=== PATIENT | male | born 1990 | race Caucasian/White ===

== ENCOUNTER 2023-01-14 09:57 | Emergency (ER) | payer SELFPAY ==
[2023-01-14 10:19] VITALS: BP 156/101; PULSE 86; RESP 18; TEMP 36.7; O2SAT 96
--- NOTE | 2023-01-14 10:30 | DI.US_ITS ---
Exam(s) US LOWER EXTREMITY VENOUS LT EXAM: US LOWER EXTREMITY VENOUS LT CLINICAL HISTORY: leg swelling. TECHNIQUE: Lower extremity venous ultrasound performed using grayscale, color-flow, and spectral Do ppler analysis. COMPARISON: No exams were available for comparison FINDINGS: The common femoral, femoral and popliteal veins demonstrate normal compressibility, augmentation, and color Doppler.Calf veins are not well seen due to patient body habitus.. No saphenous vein thrombos is or other superficial venous thrombosis is seen. No hematoma or Maynard's cyst is seen. There are r eactive groin lymph nodes. Soft tissue edema noted in calf region. IMPRESSION: Calf edema. No evidence of DVT. DATA REPOSITORY:
--- NOTE | 2023-01-14 10:37 | ED.GENADUL_ITS ---
Discharge Plan Disposition Patient Disposition: Home Discharge Details Clinical Impression: Cellulitis Primary Care Provider: None,None ED Provider: Angel Pitt Home Meds and New Rx's Prescriptions: New cephalexin 500 mg tablet 500 mg PO QID 6 Days Qty: 24 0RF Discharge Instructions Instructions: Cellulitis (ED) Additional Instructions: You may continue to take [id number] medications as needed for pain or discomfort. Please keep extremity elevated as this will help with swelling. Take antibiotics as prescribed and for full course of treatment. If you develop any new or significant worsening of symptoms please return to the emergency department for reassessment or follow-up with your primary care provider if not improving. Stand Alone Forms: Work Release Referrals: Primary Care Provider [Outside] - 5 days (If not improving) Discharge Data Discharge Date/Time-TO BE ENTERED AT DEPARTURE: 01/14/23 11:43 Medical Decision Making Patient presenting to the emergency department for chief complaint of left leg pain and discomfort. Patient states couple days ago he started feeling ill and did not know the cause. Since then he has noted significant increase in pain and discomfort of his left lower leg, malaise, and subjective fever and chills that have resolved on their own. He does state mild headache as well. Physical exam shows significant left lower leg erythema and edema that is greater than the right. Patient does have significant obesity with suspicion of some lower extremity lymphedema versus chronic swelling versus adipose tissue. Patient does have some tenderness to palpation of the calf and lateral leg. Given that we will have patient receive ultrasound imaging to rule out DVT otherwise symptoms are highly suspicious for cellulitis. Pending DVT results that are more rule out I will give patient Keflex given patient's report of childhood penicillin allergies but no other reaction since. Ultrasound imaging shows no DVT. Will discharge patient on Keflex given no reaction noted in the emergency department. After discussion of diagnosis and plan of care patient has no further needs, questions, or concerns and states clear understanding to return to the emergency department for any worsening symptoms. This documentation was generated using [employer] dictation system, please disregard any oddities of phrase or misspellings. Imaging Data Radiologic Study: Imaging: Ultrasound Radiologist's impression: Exam(s) US LOWER EXTREMITY VENOUS LT EXAM: US LOWER EXTREMITY VENOUS LT CLINICAL HISTORY: leg swelling. TECHNIQUE: Lower extremity venous ultrasound performed using grayscale, color- flow, and spectral Doppler analysis. COMPARISON: No exams were available for comparison FINDINGS: The common femoral, femoral and popliteal veins demonstrate normal compressibility, augmentation, and color Doppler.Calf veins are not well seen due to patient body habitus.. No saphenous vein thrombosis or other superficial venous thrombosis is seen. No hematoma or Maynard's cyst is seen. There are reactive groin lymph nodes. Soft tissue edema noted in calf region. IMPRESSION: Calf edema. No evidence of DVT HPI General Mode of arrival: ambulatory . Date/Time Provider Initiated Documentation: 01/14/23 09:59 . Limitations to Documentation: no limitations . Information obtained by: patient and RN notes reviewed . History of Present Illness 32 year old M presents to the emergency department with the chief complaint of Left leg swelling pain and discomfort, described as moderate, with intensity rated at 5. Quality is described as aching, and is localized to the left and lower extremity. Patient started experiencing this day(s) (3) and it has been constant. No relieving factors improve symptom(s), No exacerbating factors reported . Patient did receive the following treatments prior to arrival, none Related Data Home Medications Medication Instructions Recorded Confirmed cephalexin 500 mg tablet 500 mg PO QID 6 days #24 tabs 01/14/23 Previous Rx's Medication Instructions Recorded cephalexin 500 mg tablet 500 mg PO QID 6 days #24 tabs 01/14/23 General Stated Complaint: Cellulitis RAFIQ: 3 Review of Systems Constitutional Constitutional: Reports chills, Reports fever(s), Reports headache(s) and Reports malaise ENT Ears, Nose, Mouth, and Throat: Reports headache(s) Cardiovascular Cardiovascular: Denies chest pain and Denies dyspnea Respiratory Respiratory: Denies cough and Denies dyspnea Musculoskeletal Musculoskeletal: Reports as per HPI and Reports joint swelling Integumentary/Breasts Skin/Breast: Reports erythema, Denies rash, Reports skin pain and Reports skin swelling Neurologic Neurologic: Reports headache(s) PFSH All Active Problems (Updated 01/14/23 @ 11:33 by Angel Pitt NP) Cellulitis (Acute) Social History Smoking/Tobacco Use Status: Current every day Tobacco Type: cigarettes Years smoked: 3 Smoking risk assessment performed?: Yes Alcohol Intake: current Alcohol Intake frequency: a few times a week Alcohol type: beer and hard liquor Drug use: Rarely Substance use type: marijuana Details: About 10 beers a couple times a week Do you feel safe at home: Yes Do you feel safe in your relationship?: Yes Exam Const General: cooperative, no acute distress and not ill appearing Orientation: alert, awake and oriented x3 Resp Effort & Inspection: normal respiratory effort, able to speak in complete sentences and no respiratory distress Cardio Rate: regular rate Rhythm: regular rhythm Neuro General: patient alert, patient awake, patient oriented x3, moves all extremities and no focal motor deficits Sensory Exam: no sensory deficits noted Extrem General: normal exam except as noted and edema Laterality: bilateral (Left greater than right) Right lower extremity: edema Details: non-pitting and 1+ Left lower extremity: lower leg Details: erythema Location: of the mid lower leg Location: anterolaterally and of the distal lower leg Location: anterolaterally, tenderness Location: of the midshaft fibula and non-pitting edema Details: 3+; no abrasions, no lacerations and no deformity Course Vital Signs Vital signs: Vital Signs Temperature 36.7 C 01/14/23 10:19 Pulse 86 01/14/23 10:19 Respiratory Rate 18 01/14/23 10:19 Blood Pressure 156/101 H 01/14/23 10:19 Pulse Oximetry 96 01/14/23 10:19 Temperature 36.7 C 01/14/23 10:19 Temperature Source Oral 01/14/23 10:19 Pulse 86 01/14/23 10:19 Respiratory Rate 18 01/14/23 10:19 Blood Pressure 156/101 H 01/14/23 10:19 Blood Pressure Position Sitting 01/14/23 10:19 Pulse Oximetry 96 01/14/23 10:19 Oxygen Delivery Method Room Air 01/14/23 10:19 Oxygen Flow Rate 0 01/14/23 10:19 Pain Level 2 01/14/23 10:19 Comment took either ibuprofen or tylenol yesterday with some relief 01/14/23 10:19
[2023-01-14] MEDS: Cephalexin 500 MG CAP PO (10:45)
[2023-01-14 11:41] VITALS: BP 152/98; PULSE 90; RESP 18; O2SAT 93
== END 2023-01-14 11:43 | disposition home or self-care (01) ==
PROVIDERS: Emergency Provider Nurse Practitioner Family
DX: L03.116 Cellulitis of left lower limb (principal)
CPT/HCPCS: 99283; 93971; 99284

== ENCOUNTER 2023-05-17 09:01 | Emergency (ER) | payer SELFPAY ==
[2023-05-17 09:06] VITALS: BP 166/103; PULSE 93; RESP 22; TEMP 36.2; O2SAT 93
--- NOTE | 2023-05-17 09:12 | ED.GENADUL_ITS ---
Discharge Plan Disposition Patient Disposition: Home Condition: Good Discharge Details Clinical Impression: Fever ED Provider: Arin Holland Discharge Instructions Instructions: Fever in Adults (ED) Additional Instructions: As we discussed, your imaging and labs are reassuring here today. The pain that you had in the leg as well as the redness may have been some cellulitis but this does seem to be improving. Please continue to encourage hydration. May use Tylenol and ibuprofen as needed for discomfort. As we discussed, we will do a watch and wait approach in regards to the antibiotics, please begin if the cellulitis begins to reappear. Please go from here to community connections to establish health insurance. Please follow-up with primary care in 2 weeks for reevaluation. If you develop recurrent fever, shortness of breath, pain in your calf, shortness of breath, chest pain or other new/worsening symptom please seek care urgently once again. Discharge Data Discharge Date/Time-TO BE ENTERED AT DEPARTURE: 05/17/23 10:59 Medical Decision Making Patient is a pleasant 32-year-old male with no known past medical history presenting today with chief complaint of left leg pain and fever. Patient was here in December of this year with similar symptoms and having a cellulitis. He reports that he began having fever and right shoulder pain 3 days ago. Has had a diminished appetite. Has also been endorsing some right upper quadrant pain. Right upper quadrant and right shoulder pain are worse at night. He attributes this to malposition when sleeping. No previous abdominal surgeries. Patient does have elevated BMI of 54. He is an active smoker, states that he smokes between 1 and 2 packs/week. He states that his leg was bothering him yesterday but is not bothering him as much today. Patient does not have routine primary care. He does have familial history of heart disease as well as diabetes. On exam, patient appears nontoxic he does appear obese and that he could have chronic comorbidities. He is hypertensive with blood pressure 166/103. He was hypertensive similar to same in December. He also has a acanthosis nigrans. His lungs are clear, normal cardiac exam. He does have some right upper quadrant tenderness with questionable Reardon's. For the patient did have pain with inspiration he felt like it was more soft tissue discomfort rather than deep pain. He has bilateral lower extremity swelling which appears to be more associated with his abdomen habitus rather than any pitting edema. I do not appreciate any new cellulitis and he is not tender at this time. No calf pain or palpable cord to suggest DVT. Main concern the patient's obesity and smoking as well as possible underlying comorbidities such as hypertension possible diabetes, that he is at high risk for ACS. His RUQ pain has me concerned for possible gallbladder disorder, will obtain US. Have asked care management to see patient, trying to help him establish PCP and health insurance. Labs reviewed, glucose is slightly elevated but otherwise no acute abnormality, no leukocytosis. LIVER: Liver appears slightly prominent in size.? No focal hepatic lesions.? No obvious steatosis. GALLBLADDER/BILIARY: There are no gallstones. No gallbladder wall edema nor pericholecystic fluid The common hepatic duct isnot dilated, measuring 3-4mm at the level of ace hepatis. PANCREAS: There is no evidence of pancreatic mass nor dilatation of the pancreatic duct. RIGHT KIDNEY:No evidence of solid mass, calculus, nor hydronephrosis. No cortical cysts evident. IMPRESSION: 1.? No evidence of cholelithiasis nor dilatation of the biliary tree.? 2.? Mild hepatomegaly.? No obvious steatosis.? No focal hepatic lesions identified. 3.? No other right upper quadrant ultrasound findings and there is no ascites evident Discussed with patient. I do not see evidence of acute cellulitis or other acute bacterial infection. Advised likely viral illness. Encouraged hydration, supportive care. We discussed strict return precautions. He has resources for health insurance, I have also asked our care management team to assist with PCP. Return precautions we discssed. All of their questions and concerns were addressed, they are in agreement with this plan. [facility] General Date/Time Provider Initiated Documentation: 05/17/23 09:03 . Limitations to Documentation: no limitations . Information obtained by: patient, RN notes reviewed and old records reviewed . History of Present Illness 32 year old M presents to the emergency department with the chief complaint of fever, abdominal pain, improving LLE erythemaa, described as mild and similar to prior episodes, Quality is described as aching, and is localized to the abdomen, left and lower extremity. Patient reports no radiation. Patient started experiencing this day(s) and it has been now resolved (no pain currently, erythema in LLE has improved). No relieving factors improve symptom(s), No exacerbating factors reported . Patient notes fever/chills, loss of appetite, malaise and rash (erythema that improved); denies chest pain, cough, diaphoresis, headaches, nausea/vomiting and shortness of breath. Patient did receive the following treatments prior to arrival, none Related Data Allergies Allergy/AdvReac Type Severity Reaction Status Date / Time Penicillins AdvReac Unknown Other (See Unverified 05/17/23 10:35 Comment) General Stated Complaint: Cellulitis RAFIQ: 3 Review of Systems Constitutional Constitutional: Reports as per HPI, Denies chills and Denies headache(s) ENT Ears, Nose, Mouth, and Throat: Denies headache(s) Cardiovascular Cardiovascular: Reports as per HPI, Denies chest pain and Denies dyspnea Respiratory Respiratory: Reports as per HPI, Denies cough and Denies dyspnea Gastrointestinal Gastrointestinal: Reports as per HPI Genitourinary Genitourinary: Denies system reviewed and no additional complaints, except as documented (patient denies any change in urinary habits) Musculoskeletal Musculoskeletal: Reports as per HPI and Denies back pain Integumentary/Breasts Skin/Breast: Reports as per HPI Neurologic Neurologic: Reports as per HPI and Denies headache(s) PFSH All Active Problems (Updated 05/17/23 @ 10:50 by HELEN Tom) Fever (Acute) Social History Smoking/Tobacco Use Status: Current every day Tobacco Type: cigarettes Years smoked: 3 Smoking risk assessment performed?: Yes Alcohol Intake: current Alcohol Intake frequency: a few times a week Alcohol type: beer and hard liquor Drug use: Rarely Substance use type: marijuana Details: About 10 beers a couple times a week Housing: house Do you feel safe at home: Yes Do you feel safe in your relationship?: Yes Exam Const General: cooperative, healthy appearing, comfortable, no acute distress and well developed Nutritional Appearance: well nourished and obese Orientation: alert and awake HENMT Head: normal to inspection Mouth: moist mucous membranes Neck Neck: other (acanthosis nigricans) Resp Effort & Inspection: normal respiratory effort, able to speak in complete sentences and no respiratory distress Auscultation: clear to auscultation bilaterally, no rales, no rhonchi and no wheezes Cardio Rate: regular rate Rhythm: regular rhythm Heart Sounds: S1 normal and S2 normal GI Inspection: normal to inspection and obesity Palpation: soft, no hepatosplenomegaly (limited secondary to body habitus), not rigid and tender in the RUQ; not at McBurney's point, Reardon's sign negative (had some discomfort but no real guarding with inspiration) and with no rebound tenderness Percussion: normal to percussion Auscultation: normal bowel sounds Back/Spine/Pelvis Back: no CVA tenderness Skin General skin exam: no rashes or lesions noted (acanthosis nigricans) Trauma: no lacerations or abrasions Neuro General: patient alert and patient awake Cognition: normal cognition Speech: speech normal Gait: normal gait Extrem General: no calf tenderness, normal gait and edema Laterality: bilateral (nonpitting swelling, no tenderness, no erythema at this time) Psych Appearance: grossly normal and well kempt Mental Status: mental status grossly normal Speech and Movement: speech and movement normal Course Vital Signs Vital signs: Vital Signs Temperature 36.2 C L 05/17/23 09:06 Pulse 93 H 05/17/23 09:06 Respiratory Rate 22 05/17/23 09:06 Blood Pressure 166/103 H 05/17/23 09:06 Pulse Oximetry 93 05/17/23 09:06 Temperature 36.2 C L 05/17/23 09:06 Temperature Source Temporal Artery Scan 05/17/23 09:06 Pulse 93 H 05/17/23 09:06 Respiratory Rate 22 05/17/23 09:06 Blood Pressure 166/103 H 05/17/23 09:06 Blood Pressure Position Sitting 05/17/23 09:06 Pulse Oximetry 93 05/17/23 09:06 Oxygen Delivery Method Room Air 05/17/23 09:06 Oxygen Flow Rate 0 05/17/23 09:06
--- NOTE | 2023-05-17 09:15 | RT.EKG_ITS ---
APPROVED REPORT Exam: Resting ECG Reason for Exam: right shoulder pain Patient Location: E HR:92 bpm ECG Measurements Heart Rate 92 AXIS MN 170 P 55 QRSd 109 QRS 53 QT 362 T 32 QTc 447 Conclusion Sinus rhythm...normal P axis, V-rate 60- 99
--- NOTE | 2023-05-17 09:15 | DI.US_ITS ---
Exam(s) US ABDOMEN LIMITED EXAM: US ABDOMEN LIMITED CLINICAL HISTORY: gallbladder, RUQ pain with radiation to R shoulder TECHNIQUE: Ultrasound abdomen performed using standard protocol. COMPARISON: None FINDINGS: There is no ascites evident. LIVER: Liver appears slightly prominent in size. No focal hepatic lesions. No obvious steatosis. GALLBLADDER/BILIARY: There are no gallstones. No gallbladder wall edema nor pericholecystic fluid. The common hepatic duct isnot dilated, measuring 3-4mm at the level of ace hepatis. PANCREAS: There is no evidence of pancreatic mass nor dilatation of the pancreatic duct. RIGHT KIDNEY:No evidence of solid mass, calculus, nor hydronephrosis. No cortical cysts evident. IMPRESSION: 1. No evidence of cholelithiasis nor dilatation of the biliary tree. 2. Mild hepatomegaly. No obvious steatosis. No focal hepatic lesions identified. 3. No other right upper quadrant ultrasound findings and there is no ascites evident DATA REPOSITORY:
[2023-05-17 09:54] LABS: Abs Immature Grans 0.02 10^3/uL (0.0-0.06); Absolute Basophil Count 0.02 10^3/uL (0.0-0.2); Absolute Eosinophil Count 0.09 10^3/uL (0.0-0.7); Absolute Lymphocyte Count 1.26 10^3/uL (1.2-3.4); Absolute Monocyte Count 0.59 10^3/uL (0.1-0.8); Absolute Neutrophil Count 7.61 10^3/uL (1.2-6.7); Basophils % 0.2; Eosinophils % 0.9; HCT 44.7 % (40.0-50.0); HGB 14.8 g/dL (13.5-17.5); Immature Grans % 0.2; Lymphocytes % 13.1; MCH 27.8 pg (27.0-33.0); MCHC 33.1 % (32.0-36.0); MCV 84 fL (80-95); MPV 9.3 fL (8.0-11.0); Monocytes % 6.2; Neutrophils % 79.4; Platelet Count 226 10^3/uL (130-400); RBC 5.33 10^6/uL (4.36-5.78); RDW 15.2 % (11.8-14.1); RDW-SD 46.4 fL; WBC 9.59 10^3/uL (4.4-10.8)
--- NOTE | 2023-05-17 09:56 | CMPROGNOTE_ITS ---
Date of service: 05/17/23 Time of Service: 09:56 Care Management Progress Note Progress Note Text Progress Note Text: MICH RN was asked to meet with Madhav Ambriz who is a 32 year old male being seen in the ER for left leg pain and fever. Madhav lives in [place]. He is employed, has housing and has transportation. He does not have a PCP or Health Insurance. He has several co morbidities, increasing his risk and need for close community follow up. Referral to [facility] is provided by this designer writer. CHW has availability to meet with Madhav after he is discharged from the ER (directions are provided). In addition, Tdoc follow up will be provided and CM encouraged Madhav establish care with a PCP of choice.
[2023-05-17 10:16] LABS: ALT 31 U/L (16-63); AST 21 U/L (15-37); Albumin 3.3 g/dL (3.4-5.0); Alkaline Phosphatase 95 U/L (46-116); Anion Gap 7.3 mmol/L (3-11); BUN 11 mg/dL (7-18); Bilirubin, Total 0.4 mg/dL (0.2-1.0); CO2 25.7 mmol/L (21.0-32.0); CREATININE 0.8 mg/dL (0.70-1.30); Calcium 9.1 mg/dL (8.5-10.1); Chloride 105 mmol/L (98-107); Estimated GFR 120.59 (mL/min/1.73m2); Glucose 145 mg/dL (74-106); Magnesium 2.2 mg/dL (1.8-2.4); Potassium 3.6 mmol/L (3.5-5.1); Sodium 138 mmol/L (136-145); Total Protein 8.1 g/dL (6.4-8.2); Troponin I < 50 ng/L (<or=60)
[2023-05-17 10:48] LABS: Hemoglobin A1C 5.6 % (<5.7)
== END 2023-05-17 10:59 | disposition home or self-care (01) ==
PROVIDERS: Emergency Provider Physician Assistant
DX: M79.605 Pain in left leg (principal); R50.9 Fever, unspecified; E66.9 Obesity, unspecified; F17.210 Nicotine dependence, cigarettes, uncomplicated; Z82.49 Family history of ischemic heart disease and other diseases of the circulatory system; Z83.3 Family history of diabetes mellitus
CPT/HCPCS: 36415; 80053; 93005; 99284; 76705; 83036; 83735; 84484; 85025; 93010; 99283

== ENCOUNTER 2024-01-04 17:51 | Outpatient (REF) | payer OTHER, SELFPAY ==
[2024-01-04 21:11] LABS: HCT 45.8 % (40.0-50.0); HGB 14.4 g/dL (13.5-17.5); MCHC 31.4 % (32.0-36.0); MCV 86 fL (80-95); MPV 9.5 fL (8.0-11.0); Platelet Count 294 10^3/uL (130-400); RBC 5.34 10^6/uL (4.36-5.78); RDW 15.1 % (11.8-14.1); RDW-SD 47.8 fL; WBC 8.02 10^3/uL (4.4-10.8)
[2024-01-04 21:27] LABS: ALT 24 U/L (16-63); AST 22 U/L (15-37); Albumin 3.3 g/dL (3.4-5.0); Alkaline Phosphatase 106 U/L (46-116); Anion Gap 7.3 mmol/L (3-11); BUN 14 mg/dL (7-18); Bilirubin, Total 0.3 mg/dL (0.2-1.0); CO2 29.7 mmol/L (21.0-32.0); CREATININE 0.9 mg/dL (0.70-1.30); Calcium 8.9 mg/dL (8.5-10.1); Chloride 105 mmol/L (98-107); Estimated GFR 115.65 (mL/min/1.73m2); Glucose 102 mg/dL (74-106); Potassium 4.1 mmol/L (3.5-5.1); Sodium 142 mmol/L (136-145); TSH (W/Ref FT4) 0.99 uIU/mL (0.36-3.74); Total Protein 7.9 g/dL (6.4-8.2)
== END 2024-01-04 17:52 | disposition home or self-care (01) ==
LOC: NCHCN 17:51
PROVIDERS: Visit Provider Family Medicine
DX: R53.83 Other fatigue (principal); E66.8 Other obesity
CPT/HCPCS: 80053; 85027; 84443